=== PATIENT | female | born 1995 | race Caucasian/White ===

== ENCOUNTER 2016-08-06 10:21 | Emergency (ER) | payer OTHER ==
[2016-08-06 10:29] VITALS: RESP 18
[2016-08-06] MEDS ORDERED: KETOROLAC TROMETHAMINE 30 MG/ML SOL IM ONE (10:48)
[2016-08-06] MEDS: ONDANSETRON HCL 4 MG TAB PO ONE ×2 (10:48→10:55)
[2016-08-06] MEDS ORDERED: ACETAMINOPHEN 500 MG 500 MG TAB PO ONE (10:48)
[2016-08-06] MEDS ORDERED: ONDANSETRON 4 MG ODT BU ONE (10:51)
[2016-08-06] MEDS ORDERED: KETOROLAC TROMETHAMINE 30 MG/ML SOL ONE (10:51)
[2016-08-06] MEDS ORDERED: ONDANSETRON 4 MG ODT ONE (10:52)
[2016-08-06] MEDS ORDERED: ACETAMINOPHEN 500 MG 500 MG TAB ONE (11:37)
[2016-08-06] MEDS ORDERED: HYDROXYZINE HYDROCHLORIDE 25 MG/ML SOL IM ONE (11:46)
[2016-08-06] MEDS ORDERED: PROMETHAZINE HYDROCHLORIDE 25 MG/ML SOL IM ONE (11:59)
[2016-08-06] MEDS ORDERED: PROMETHAZINE HYDROCHLORIDE 25 MG/ML SOL ONE (12:02)
[2016-08-06 13:22] VITALS: BP 110/65; PULSE 75; TEMP 98; O2SAT 99
== END 2016-08-06 13:19 | disposition home or self-care (01) | DRG 103 ==
LOC: ED 10:21
DX: G43.009 Migraine without aura, not intractable, without status migrainosus (principal)
CPT/HCPCS: 99285; J1885; J2550

== ENCOUNTER 2017-04-11 22:59 | Emergency (ER) | payer OTHER ==
[2017-04-11 22:59] VITALS: O2SAT 99
[2017-04-11 23:04] VITALS: RESP 20
[2017-04-11 23:20] LABS: APPEARANCE,URINE Clear; BILIRUBIN,URINE NEGATIVE (NEGATIVE); COLOR,URINE Yellow; GLUCOSE, URINE (UA) TRACE (NEGATIVE); KETONES,URINE NEGATIVE (NEGATIVE); LEUKOCYTE ESTERASE ,URINE 1+ (NEGATIVE); NITRATE,URINE NEGATIVE (NEGATIVE); OCCULT BLOOD,URINE NEGATIVE (NEG-TRACE); UROBILINOGEN,URINE 0.2 (0.2-1.0 EU)
[2017-04-11 23:26] LABS: BASOPHILS % (AUTO) 0 % (0-3); EOSINOPHILS % (AUTO) 1 % (0-9); HEMATOCRIT 30 % (35-47); MEAN CORPUSCULAR HGB CONC 34.4 gm/dl (32.0-36.0); MEAN CORPUSCULAR VOLUME 92 fL (81-99); MONOCYTES % (AUTO) 9.1 % (0-12); NEUTROPHILS % (AUTO) 71.6 % (37-80)
[2017-04-11 23:40] LABS: ALBUMIN 2.6 gm/dl (3.4-5.0); CALCIUM 8.2 mg/dl (8.5-10.1); POTASSIUM 3.5 mMol/L (3.5-5.1)
[2017-04-11 23:41] LABS: RBC,URINE 0-2 (0-3AV/HPF)
[2017-04-11 23:42] VITALS: BP 138/79; PULSE 80; TEMP 97.7
== END 2017-04-12 00:58 | disposition short-term general hospital (02) | DRG 781 ==
LOC: ED 22:59
DX: O26.893 Other specified pregnancy related conditions, third trimester (principal); R10.9 Unspecified abdominal pain; Z3A.35 35 weeks gestation of pregnancy
CPT/HCPCS: 36415; 59025; 80053; 81001; 85025; 99283